=== PATIENT | male | born 1960 | race American Indian/Alaskan Native ===

== ENCOUNTER 2021-01-16 14:43 | Emergency (ER) | payer MEDICARE ==
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
--- NOTE | 2021-01-16 23:18 | XRay Report ---
CHEST 1 VIEW INDICATION / CLINICAL INFORMATION: med clearance. COMPARISON: None available. FINDINGS: SUPPORT DEVICES: None. HEART / MEDIASTINUM: No significant abnormality. LUNGS / PLEURA: No significant pulmonary or pleural abnormality. No pneumothorax. ADDITIONAL FINDINGS: No significant additional findings. IMPRESSION: 1. No acute findings. Signer Name: Zoraida Ferraro MD Signed: 01/16/2021 11:14 PM Workstation Name: [id number]
[2021-01-16 23:40] LABS: Basophils % (Auto) 0.6 % (0.0-1.8); Eosinophils # (Auto) 0.1 K/mm3 (0.0-0.4); Eosinophils % (Auto) 3.1 % (0.0-4.3); Hematocrit 34.3 % (35.5-45.6); Hemoglobin 11.7 gm/dl (11.8-15.2); Lymphocytes # (Auto) 1.1 K/mm3 (1.2-5.4); Lymphocytes % (Auto) 26.6 % (13.4-35.0); Mean Corpuscular HGB Conc 34 % (32-34); Mean Corpuscular Volume 86 fl (84-94); Monocytes # (Auto) 0.4 K/mm3 (0.0-0.8); Monocytes % (Auto) 10.6 % (0.0-7.3); Platelet Count 136 K/mm3 (140-440); Red Blood Count 3.98 M/mm3 (3.65-5.03); Red Cell Distribution Width 13.5 % (13.2-15.2)
[2021-01-16 23:50] LABS: Calcium 9.2 mg/dL (8.4-10.2)
[2021-01-17] MEDS ORDERED: ACETAMINOPHEN 325 MG TAB PO PRN (02:10)
[2021-01-17] MEDS: carvediloL 25 MG TAB PO SCH ×3 (03:34→22:40)
[2021-01-17] MEDS: levETIRAcetam 500 MG/5 ML ORAL LIQD PO SCH ×3 (03:34→22:40)
[2021-01-17] MEDS: GABAPENTIN 100 MG CAP PO SCH ×3 (06:06→23:11)
[2021-01-17] MEDS: ASPIRIN 81 MG TAB CHEW PO SCH (12:05)
[2021-01-17] MEDS: NIFEdipine XL 30 MG TAB PO SCH (13:11)
[2021-01-17] MEDS: SERTRALINE 100 MG TAB PO SCH (13:11)
[2021-01-17] MEDS: SENNOSIDES 8.6 MG TAB PO SCH ×2 (13:12→22:40)
[2021-01-17] MEDS: CHLORTHALIDONE 25 MG TAB PO SCH (13:13)
[2021-01-17] MEDS: POTASSIUM CHLORIDE ER 10 MEQ TAB PO SCH (13:13)
[2021-01-18] MEDS: GABAPENTIN 100 MG CAP PO SCH (06:02)
[2021-01-18] MEDS: ASPIRIN 81 MG TAB CHEW PO SCH (10:47)
[2021-01-18] MEDS: carvediloL 25 MG TAB PO SCH (10:48)
[2021-01-18] MEDS: POTASSIUM CHLORIDE ER 10 MEQ TAB PO SCH (10:48)
[2021-01-18] MEDS: levETIRAcetam 500 MG/5 ML ORAL LIQD PO SCH (10:48)
[2021-01-18] MEDS: SERTRALINE 100 MG TAB PO SCH (10:49)
[2021-01-18] MEDS: CHLORTHALIDONE 25 MG TAB PO SCH (10:49)
[2021-01-18] MEDS: SENNOSIDES 8.6 MG TAB PO SCH (10:50)
[2021-01-18] MEDS: NIFEdipine XL 30 MG TAB PO SCH (10:50)
--- NOTE | 2021-01-18 12:37 | Event Note ---
Date: 01/18/21 Patient resting comfortably. No events overnight. Still waiting for placement.
[2021-01-18 15:53] VITALS: BP 134/84
== END 2021-01-18 15:53 | disposition other institution (70) ==
LOC: ED 14:43 → EEVIPCON 14:43 → ED 01-18 15:53
DX: G81.94 Hemiplegia, unspecified affecting left nondominant side (principal); R47.1 Dysarthria and anarthria; I10 Essential (primary) hypertension; Z20.822 Contact with and (suspected) exposure to COVID-19; Z79.899 Other long term (current) drug therapy; Z86.73 Personal history of transient ischemic attack (TIA), and cerebral infarction without residual deficits
CPT/HCPCS: 36415; 71045; 80048; 85025; 99285; A9270; U0003